=== PATIENT | female | born 1990 | race Caucasian/White ===

== ENCOUNTER 2020-06-18 20:22 | Emergency (ER) | payer OTHER, MEDICAID ==
[~2020-06-18] VITALS: Ht 167.6 cm; Wt 120.0 kg
[~2020-06-18 20:22] MED LIST: HYDR-2761 PO; HYDR-3164 PO; MULT-160 PO; NAPR-514 PO
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
[2020-06-18 21:29] VITALS: BP 138/94
== END 2020-06-18 21:43 | disposition home or self-care (01) ==
LOC: ER 20:22
DX: S00.83XA Contusion of other part of head, initial encounter (principal); H92.02 Otalgia, left ear; F31.9 Bipolar disorder, unspecified; F17.200 Nicotine dependence, unspecified, uncomplicated; F90.9 Attention-deficit hyperactivity disorder, unspecified type; F43.10 Post-traumatic stress disorder, unspecified; Z88.6 Allergy status to analgesic agent; Z88.0 Allergy status to penicillin; Z88.8 Allergy status to other drugs, medicaments and biological substances; Y08.89XA Assault by other specified means, initial encounter; Y93.89 Activity, other specified; Y92.89 Other specified places as the place of occurrence of the external cause; Y99.8 Other external cause status
CPT/HCPCS: 70450; 70486; 72125; 81025; 99285-25

== ENCOUNTER 2020-09-19 10:00 | Emergency (ER) | payer OTHER, MEDICAID ==
[~2020-09-19] VITALS: Ht 172.7 cm; Wt 84.0 kg
[2020-09-19 10:04] VITALS: BP 126/86
--- NOTE | 2020-09-19 10:58 | RAD ---
XR HAND_RIGHT 3 VIEWS History: Reason: dog bite right hand / Spl. Instructions: / History: Comparison: 04/25/2016 Technique: 4 views of the right hand. Findings: Osseous mineralization is normal. No fracture or dislocation is identified. No significant degenerati ve change. No erosive process. No radiopaque foreign body or subcutaneous emphysema. Question mild sw elling over the dorsal distal metacarpals. Impression: 1. No acute osseous abnormality of the right hand. No radiopaque foreign body or subcutaneous emphys primitivo. Electronically signed by: Ryan Renteria MD (09/19/2020 10:56 AM) [facility]
[2020-09-19] MEDS ORDERED: DOXY100T PO (11:08)
--- NOTE | 2020-09-19 11:08 | PHYS DOC ---
Past Medical History Past Medical History: Anxiety, Bipolar, Depression Additional Past Medical Histor: ADHD, PTSD Past Surgical History: No Surgical History, Tubal ligation Additional Past Surgical Histo: Left elbow Smoking Status: Current Every Day Smoker Alcohol Use: Occasionally Drug Use: Methamphetamine General Adult EDM: Chief Complaint: HAND PROBLEM HPI: HPI: Patient is a 30 year old female with a history of anxiety, bipolar, depression, who presents the ED today with a dog bite to the right hand that occurred couple minutes prior to coming to the ED. Patient is right-handed. She has been on the phone and is still on the phone as I speak to her and seem not to pay attention. Review of Systems: Review of Systems: Constitutional: Denies fever or chills. [] Musculoskeletal: Denies back pain or joint pain. [] Integument: Reports dog bite to the right hand Neurologic: Denies headache, focal weakness or sensory changes. [] Psychiatric: Denies depression or anxiety. [] Heart Score: C/O Chest Pain: No Risk Factors: Risk Factors: DM, Current or recent (<one month) smoker, HTN, HLP, family history of CAD, obesity. Risk Scores: Score 0 - 3: 2.5% MACE over next 6 weeks - Discharge Home Score 4 - 6: 20.3% MACE over next 6 weeks - Admit for Clinical Observation Score 7 - 10: 72.7% MACE over next 6 weeks - Early Invasive Strategies Allergies: Allergies: Allergies Coded Allergies Type Severity Reaction Last Updated Verified aspirin Allergy Intermediate 01/23/15 Yes propoxyphene Allergy Intermediate 01/23/15 Yes tramadol Allergy Intermediate 01/23/15 Yes Penicillins Adverse Reaction Intermediate Nausea and Vomiting 01/23/15 Yes Physical Exam: PE: Constitutional: Well developed, well nourished, no acute distress, non-toxic appearance. [] Skin: Right dorsal hand medially middle finger and ring finger metacarpals with a puncture wound roughly 0.5 cm, diameter. No bleeding. Full range of motion to the right hand and fingers. Adequate radial, medial, ulnar sensation to the right hand. +2 left radial pulse. Cap refill less than 2 seconds of right fingers Back: No tenderness, no CVA tenderness. [] Extremities: No tenderness, no cyanosis, no clubbing, ROM intact, no edema. [] Neurologic: Alert and oriented X 3, normal motor function, normal sensory function, no focal deficits noted. [] Psychologic: Affect normal, judgement normal, mood normal. [] Current Patient Data: Vital Signs: Vital Signs Date Time Temp Pulse Resp B/P (MAP) Pulse Ox O2 Delivery O2 Flow Rate FiO2 09/19/20 10:04 98.2 116 18 126/86 (99) 100 Room Air 98.2 EKG: EKG: [] Radiology/Procedures: Radiology/Procedures: []PROCEDURE: HAND RIGHT 3V XR HAND_RIGHT 3 VIEWS History: Reason: dog bite right hand / Spl. Instructions: / History: Comparison: 04/25/2016 Technique: 4 views of the right hand. Findings: Osseous mineralization is normal. No fracture or dislocation is identified. No significant degenerative change. No erosive process. No radiopaque foreign body or subcutaneous emphysema. Question mild swelling over the dorsal distal metacarpals. Impression: 1. No acute osseous abnormality of the right hand. No radiopaque foreign body or subcutaneous emphysema. Electronically signed by: Ryan Renteria MD (09/19/2020 10:56 AM) [facility] DICTATED and SIGNED BY: RYAN RENTERIA MD DATE: 09/19/20 [id number] 0 Course & Med Decision Making: Course & Med Decision Making Pertinent Labs and Imaging studies reviewed. (See chart for details) This is a 30-year-old female patient presenting with a dog bite to the right hand. Tetanus up-to-date. Right hand x-rays are negative for any acute findings. Discharged on doxycycline, patient is allergic to penicillin. Wound care instructions and return precautions provided. Kermit Disclaimer: Kermit Disclaimer: This electronic medical record was generated, in whole or in part, using a voice recognition dictation system. Departure Departure Impression: Primary Impression: Dog bite, hand Qualified Codes: S61.451A - Open bite of right hand, initial encounter; W54.0XXA - Bitten by dog, initial encounter Disposition: 01 DC HOME SELF CARE/HOMELESS Condition: STABLE Referrals: NO PCP (PCP) follow up in one week with your doctor Patient Instructions: Animal Bite, [id number] Additional Instructions: You have a dog bite to the right hand. Please wash the area with soap and water twice a day and as needed. Take the prescribed antibiotics until completed. Follow-up with your doctor in 1 to 2 weeks Scripts Doxycycline Hyclate (DOXYCYCLINE HYCLATE) 100 Mg Tablet 1 TAB PO BID, #20 TAB Prov: DELORIS MELTON APRN 09/19/20 DELORIS MELTON APRN Sep 19, 2020 11:08
== END 2020-09-19 11:38 | disposition home or self-care (01) ==
LOC: ER 10:00
DX: S61.451A Open bite of right hand, initial encounter (principal); F31.9 Bipolar disorder, unspecified; F17.200 Nicotine dependence, unspecified, uncomplicated; F90.9 Attention-deficit hyperactivity disorder, unspecified type; F43.10 Post-traumatic stress disorder, unspecified; Z88.0 Allergy status to penicillin; Z88.6 Allergy status to analgesic agent; W54.0XXA Bitten by dog, initial encounter; Y93.89 Activity, other specified; Y92.89 Other specified places as the place of occurrence of the external cause; Y99.8 Other external cause status
CPT/HCPCS: 73130; 99283

== ENCOUNTER 2020-09-22 09:38 | Emergency (ER) | payer OTHER, MEDICAID ==
[~2020-09-22] VITALS: Ht 165.1 cm; Wt 77.2 kg
[~2020-09-22 09:38] MED LIST changes: +DOXY100T PO
[2020-09-22 10:00] VITALS: BP 129/66
[2020-09-22] MEDS ORDERED: LIDOCAINE 2% Multi-Dose 20 ML VIAL. IJ ONE (10:30)
--- NOTE | 2020-09-22 10:33 | RAD ---
Exam Date: 09/22/2020 10:17 AM XR FINGER(S)_LEFT 2+VIEWS_RT Indication: Reason: L middle finger pain, swelling, possible FB / Spl. Instructions: / History: FINDINGS/ IMPRESSION: No radiopaque foreign body is identified. There is soft tissue swelling of the third finger. No acute fracture or dislocation. Alignment and joint spaces are maintained. Electronically signed by: Ganesh Dorman MD (09/22/2020 10:30 AM) [facility]
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
[2020-09-22] MEDS ORDERED: ACETAMINOPHEN 500 MG TABLET PO ONE (11:45)
== END 2020-09-22 11:41 | disposition home or self-care (01) ==
LOC: ER 09:38
DX: L03.012 Cellulitis of left finger (principal); M79.645 Pain in left finger(s); R60.0 Localized edema; F41.9 Anxiety disorder, unspecified; F32.9 Major depressive disorder, single episode, unspecified; F17.200 Nicotine dependence, unspecified, uncomplicated; F19.90 Other psychoactive substance use, unspecified, uncomplicated; F43.12 Post-traumatic stress disorder, chronic; Z98.890 Other specified postprocedural states; Z98.51 Tubal ligation status; Z88.8 Allergy status to other drugs, medicaments and biological substances; Z88.0 Allergy status to penicillin; W54.0XXA Bitten by dog, initial encounter; Y93.89 Activity, other specified; Y92.89 Other specified places as the place of occurrence of the external cause; Y99.8 Other external cause status
CPT/HCPCS: 10060; 26011; 73140; 99283

== ENCOUNTER 2021-03-08 03:49 | Emergency (ER) | payer OTHER, MEDICAID ==
[~2021-03-08] VITALS: Ht 160 cm; Wt 80.0 kg
--- NOTE | 2021-03-08 04:25 | PHYS DOC ---
Past Medical History Past Medical History: Anxiety, Bipolar, Depression Additional Past Medical Histor: ADHD, PTSD Past Surgical History: No Surgical History Additional Past Surgical Histo: Left elbow Smoking Status: Current Every Day Smoker Alcohol Use: Occasionally Drug Use: Methamphetamine General Adult EDM: Chief Complaint: UPPER EXTREMITY PAIN HPI: HPI: 31-year-old female who recently got released from [facility] presents the emergency department planing of chronic left arm pain for the last 3 months without any acute acute trauma, gradual development of headache for the last 3 days without any trauma or sudden onset associated with the headache. She is also requesting syphilis test because she was recently in close contact with a fellow inmate who had syphilis along with a Covid test because there is many Covid patients in the [facility] that she was located and she was exposed many times. She denies any cough shortness of breath fever chills abdominal pain nausea vomiting diarrhea. Review of Systems: Review of Systems: ROS otherwise negative except for what was mentioned in HPI Heart Score: C/O Chest Pain: No Allergies: Allergies: Allergies Coded Allergies Type Severity Reaction Last Updated Verified aspirin Allergy Intermediate 01/23/15 Yes propoxyphene Allergy Intermediate 01/23/15 Yes tramadol Allergy Intermediate 01/23/15 Yes Penicillins Adverse Reaction Intermediate Nausea and Vomiting 01/23/15 Yes Physical Exam: PE: Constitutional: No acute distress, non-toxic appearance. HENT: Atraumatic, bilateral external ears normal, nose normal. Eyes: PERRLA, EOMI, conjunctiva normal, no discharge. Neck: Normal range of motion, supple, no stridor. Cardiovascular: Heart rate regular rhythm. 2+ radial pulses Lungs & Thorax: No respiratory distress, symmetrical expansion. Abdomen: Soft, no tenderness Skin: Warm, dry. Atopic dermatitis appearing rash to the right neck Extremities: No tenderness, no cyanosis, ROM intact, no edema. No tenderness to the left shoulder or elbow area, limited range of motion secondary to patient tolerance of pain. Neurologic: Alert and oriented X 3, normal motor function, normal sensory function, no focal deficits noted. Non ataxic gait. GCS 15. Psychologic: Affect normal, judgment normal, mood normal. Current Patient Data: Labs: Laboratory Tests Test 03/08/21 05:00 SARS-CoV-2 Antigen (Rapid) Negative (NEGATIVE) Vital Signs: Vital Signs Date Time Temp Pulse Resp B/P (MAP) Pulse Ox O2 Delivery O2 Flow Rate FiO2 03/08/21 05:30 82 18 110/76 (87) 97 03/08/21 04:17 98.8 109 18 126/81 (96) 99 98.8 Radiology/Procedures: Radiology/Procedures: Humerus x-ray without fracture or other findings. Interpreted by me Julian Vasquez DO Course & Med Decision Making: Course & Med Decision Making Patient is improved clinically with reduced headache at the time of discharge. Counseled on return precautions including pending syphilis and Covid testing. Patient overall looks well Departure Departure Impression: Primary Impression: Headache Disposition: 01 HOME / SELF CARE / HOMELESS Condition: STABLE Referrals: NO PCP (PCP) Patient Instructions: General Headache Without Cause, [id number] Additional Instructions: You were seen in the Emergency Department for headache. Please drink plenty of fluids -- at least 6-8 glasses of water per day. Dehydration can often precipitate headaches. Avoid alcohol and sugary or caffeinated beverages. Return to the Emergency Department, day or night, if you develop recurrent or worsening headache, vision changes, difficulty eating or drinking due to nausea or vomiting, weakness or numbness in the limbs, difficulty walking or fever. JULIAN VASQUEZ DO Mar 08, 2021 04:25
[2021-03-08] MEDS ORDERED: IV NORMAL SALINE 1000ML BAG 1,000 ML IV ONE (05:00)
[2021-03-08] MEDS ORDERED: METOCLOPRAMIDE HCL 10 MG/2 ML VIAL. IVP ONE (05:00)
[2021-03-08 05:30] VITALS: BP 110/76
--- NOTE | 2021-03-08 06:05 | RAD ---
Left humerus 2 views: Reason for examination: Arm pain. No fracture is seen. Bone density is normal. No abnormal periosteal reaction is seen. Elbow and shoul ezekiel joints appear to be maintained. IMPRESSION: No acute abnormality seen at the left humerus. Electronically signed by: Iesha Espinosa MD (03/08/2021 6:02 AM) [facility]
--- NOTE | 2021-03-10 16:00 | NUR ---
IP: Attempted to contact pt concerning covid test. Mother answered phone number provided. She states pt does not have a phone. Informed mother of negative covid test. she verbalized understanding.
== END 2021-03-08 06:00 | disposition home or self-care (01) ==
LOC: ER 03:49
DX: R51.9 Headache, unspecified (principal); Z20.822 Contact with and (suspected) exposure to COVID-19; G89.29 Other chronic pain; M79.602 Pain in left arm; F31.9 Bipolar disorder, unspecified; F17.200 Nicotine dependence, unspecified, uncomplicated; F90.9 Attention-deficit hyperactivity disorder, unspecified type; F43.10 Post-traumatic stress disorder, unspecified; Z88.0 Allergy status to penicillin; Z88.6 Allergy status to analgesic agent; Z88.8 Allergy status to other drugs, medicaments and biological substances
CPT/HCPCS: 36415; 73060; 86592; 87426; 96361; 96374; 99284; J2765; J7030; U0003; U0005